=== PATIENT | female | born 1985 | race Caucasian/White ===

== ENCOUNTER → 2022-08-22 | Outpatient (CLI) | payer BC, MEDICAID ==
--- NOTE | 2022-08-22 16:20 | Diagnostic Imaging Report ---
INDICATION: Routine care. TECHNIQUE: Multiple real-time grayscale images were obtained over the gravid uterus. COMPARISON: None FINDINGS: There is a single live fetus in a variable presentation. heart rate was recorded at 153 bpm. Placenta is anterior. No previa is detected. Amniotic fluid index is 14.2 cm. Cervical length is 5.2 cm. kidneys, bladder and stomach are unremarkable. brains unremarkable. There is a 4 chamber heart. There is a three-vessel cord with normal insertion. spine is unremarkable. Biometrical measurements are as follows: Biparietal 4.60 cm, age 20 weeks 0 days. Head circumference 17.74 cm, age 20 weeks 2 days. Abdominal circumference 14.70 cm, age 20 weeks 0 days. Femur length 3.19 cm, age 20 weeks 0 days. Sonographic estimate age: 20 weeks 1 days. Sonographic estimated date of delivery: 01/06/23. Estimated Weight: 325 gm (+/- 47 gm). LMP percentile: 23%. heart rate: 153 beats per minute. number: 1 of 1. IMPRESSION: Single live IUP 20 weeks 1 day gestational age. Estimated date of confinement sonographically is 01/06/2023. Dictated by: Dictated on workstation # [id number]
== END ==
LOC: RAD 09:41
PROVIDERS: ATTEND Nurse Practitioner Women's Health
DX: Z34.92 Encounter for supervision of normal pregnancy, unspecified, second trimester (principal); Z3A.20 20 weeks gestation of pregnancy
CPT/HCPCS: 76805

== ENCOUNTER 2022-12-03 17:46 | Outpatient (CLI) | payer BC, MEDICAID ==
[~2022-12-03] VITALS: Ht 162.6 cm; Wt 94.0 kg
[2022-12-03 18:00] VITALS: BP 120/68
[2022-12-03] MEDS ORDERED: PREN1TAB79 PO (18:24)
[2022-12-03 18:41] VITALS: BP 120/68
[2022-12-03 18:51] LABS: BACTERIA,URINE NEGATIVE /HPF; BILIRUBIN,URINE NEGATIVE (NEGATIVE); CLARITY,URINE CLEAR; COLOR,URINE YELLOW; GLUCOSE, URINE (UA) NEGATIVE (NEGATIVE); KETONES,URINE NEGATIVE (NEGATIVE); LEUKOCYTE ESTERASE ,URINE NEGATIVE (NEGATIVE); NITRITE,URINE NEGATIVE (NEGATIVE); PH,URINE 6.5 (5-9); PROTEIN,URINE NEGATIVE (NEGATIVE)
[2022-12-03] MEDS ORDERED: TERBUTALINE INJ 1 MG/ML (BRETHINE) AMP ONE (18:58)
[2022-12-03] MEDS ORDERED: TERBUTALINE INJ 1 MG/ML (BRETHINE) AMP SC ONE (19:00)
[2022-12-03] MEDS ORDERED: TERBUTALINE INJ 1 MG/ML (BRETHINE) AMP SC PRN (19:20)
[2022-12-03 20:21] VITALS: BP 107/60
--- NOTE | 2022-12-04 06:38 | OB Triage Report ---
Standard Progress Note Progress Notes/Assess & Plan Date Seen by a Provider: Dec 03, 2022 Time Seen by a Provider: 18:00 Expected Date of Delivery: Jan 06, 2023 Gestational Age in Weeks: 35 Gestational Age in Days: 1 LMP/SOTERO Comment: As above Progress/Assessment & Plan Chief Complaint: Contractions HPI: Patient is 35 1/7 weeks prior who received round of steroids for lung maturity 1 week ago presents with contractions, mild, q4-6 minutes initially with cervix that is 1 cm and long. Patient was given SQ terbutaline x 1 which essentially stopped contractions, irritability only for next hour. Patient did have HR increase briefly to 160 then back down to baseline, therefore no more doses of terbutaline given and patient instructed to notify other providers of her tachycardia with this medication. UA negative, Category I FHR tracing with moderate variability, +accels, no decels. A/P: 35 1/7 weeks contractions, not in labor Home with labor precautions Follow up with OB provider this week, sooner prn. Final Diagnosis Third Trimester , 35 weeks Contractions Not in Labor YANCY MENDOZA DO Dec 04, 2022 06:38
== END 2022-12-03 20:22 | disposition home or self-care (01) ==
LOC: WSo 17:46 → LDRP 17:47 → WSo 20:22
PROVIDERS: ATTEND Obstetrics & Gynecology
DX: O47.03 False labor before 37 completed weeks of gestation, third trimester (principal); Z3A.35 35 weeks gestation of pregnancy
CPT/HCPCS: 81000; 96372; G0463; 99213

== ENCOUNTER 2022-12-18 12:20 | Inpatient (IN) | payer BC, MEDICAID ==
[2022-12-18] VITALS (14 sets, daily range): BP systolic 83–120; BP diastolic 54–91
[~2022-12-18] VITALS: Ht 162.6 cm; Wt 95.7 kg
[~2022-12-18 12:20] MED LIST: PREN1TAB79 PO
[2022-12-18] MEDS ORDERED: FAMOTIDINE INJ 20MG/2ML VIAL IV ONE (13:00)
[2022-12-18] MEDS ORDERED: METOCLOPRAMIDE INJ 10 MG/2 ML IV ONE (13:00)
[2022-12-18] MEDS ORDERED: CITRIC ACID/SODIUM CITRATE ORAL SOLN 30 ML PO ONE (13:00)
[2022-12-18] MEDS: LACTATED RINGERS 1,000 ML 1,000 ML IV PRN ×2 (13:27→13:53)
[2022-12-18 13:29] LABS: BASOPHILS % (AUTO) 0 % (0-10); EOSINOPHILS # (AUTO) 0.1 10^3/uL (0.0-0.3); EOSINOPHILS % (AUTO) 1 % (0-10); HEMATOCRIT 38 % (35-52); HEMOGLOBIN 12.9 g/dL (11.5-16.0); LYMPHOCYTES # (AUTO) 1.9 10^3/uL (1.0-4.0); LYMPHOCYTES % (AUTO) 16 % (12-44); MEAN CORPUSCULAR HEMOGLOBIN 32 pg (25-34); MEAN CORPUSCULAR HGB CONC 34 g/dL (32-36); MEAN CORPUSCULAR VOLUME 93 fL (80-99); MEAN PLATELET VOLUME 11.4 fL (9.0-12.2); MONOCYTES % (AUTO) 9 % (0-12); NEUTROPHILS # (AUTO) 8.9 10^3/uL (1.8-7.8); NEUTROPHILS % (AUTO) 74 % (42-75); PLATELET COUNT 168 10^3/uL (130-400); WHITE BLOOD COUNT 11.9 10^3/uL (4.3-11.0)
[2022-12-18] MEDS ORDERED: fentaNYL INJECTION 100 MCG/2 ML VIAL ONE (14:24)
--- NOTE | 2022-12-18 14:59 | History & Physical-OB ---
OB - Chief Complaint & HPI Date/Time Date of Admission: Date of Admission: Dec 18, 2022 at 12:20 Date seen by a Provider: Dec 18, 2022 Time Seen by a Provider: 14:30 Chief Complaint/History OB-Reason for Admission/Chief: Section Hx : 5 Hx Para: 4 Expected Date of Delivery: Jan 05, 2023 Gestational Age in Weeks: 37 Gestational Age in Days: 3 Indication for : desires repeat Other reason for admission: Patient rayo regularly w/ pelvic pressure and back pain, previous x 4 Admission Nurse Assessment Rev: Yes History of Labs B pos Antibody neg RI RPR NR HBsAg NR HIV NR GC neg GBS neg Allergies and Home Medications Allergies Coded Allergies: No Known Drug Allergies (Unverified , 12/03/22) Patient Home Medication List Home Medication List Reviewed: Yes Vit W-Ca,Fe,FA(<1 mg) ( Vitamins) 27 Mg Iron-800 Mcg Tablet, 1 EACH PO DAILY, (Reported) Entered as Reported by: SHERRY ALCALA on 12/03/221823 OB - History Hx of Present Care: Yes Ultrasounds: Normal mid trimester US Obstetrical Complications: None Medical Complications: None Other Concerns: had contractions and received betamethasone at 32 weeks Patient Past Medical History nc Social History/Family History 2nd Hand Smoke Exposure: No Immunizations Influenza Vaccine Up-to-Date: Yes; Up-to-Date Hepatitis A: No Hepatitis B: No OB - Admission Exam Physical Exam Vitals: Vital Signs 12/18/22 13:15 Pulse 95 B/P (MAP) 118/57 (77) O2 Delivery Room Air HEENT: NCAT Heart: Rhythm Normal Lungs: Clear Abdomen: Gravid Extremities: Normal Reflexes: Normal Heart Rate: 130's Accelerations: Accelerations Present Decelerations: No Decelerations Short Term Variability: Present Matting Press Tender Variability: Average (6-25) Contractions on Admission: < 5 Minutes Apart Intensity: Firm Labs Laboratory Tests Test 12/18/22 13:15 Range/Units White Blood Count 11.9 H 4.3-11.0 10^3/uL Red Blood Count 4.09 3.80-5.11 10^6/uL Hemoglobin 12.9 11.5-16.0 g/dL Hematocrit 38 35-52 % Mean Corpuscular Volume 93 80-99 fL Mean Corpuscular Hemoglobin 32 25-34 pg Mean Corpuscular Hemoglobin Concent 34 32-36 g/dL Red Cell Distribution Width 12.6 10.0-14.5 % Platelet Count 168 130-400 10^3/uL Mean Platelet Volume 11.4 9.0-12.2 fL Immature Granulocyte % (Auto) 1 % Neutrophils (%) (Auto) 74 42-75 % Lymphocytes (%) (Auto) 16 12-44 % Monocytes (%) (Auto) 9 0-12 % Eosinophils (%) (Auto) 1 0-10 % Basophils (%) (Auto) 0 0-10 % Neutrophils # (Auto) 8.9 H 1.8-7.8 10^3/uL Lymphocytes # (Auto) 1.9 1.0-4.0 10^3/uL Monocytes # (Auto) 1.0 0.0-1.0 10^3/uL Eosinophils # (Auto) 0.1 0.0-0.3 10^3/uL Basophils # (Auto) 0.0 0.0-0.1 10^3/uL Immature Granulocyte # (Auto) 0.1 0.0-0.1 10^3/uL Syphilis Total Antibody Negative Negative OB - Assessment/Plan/Diagnosis Assessment Assessment: section Admission Dx 37 yo @ 37 weeks Previous x 4 Active labor GBS neg Admission Status: Inpatient Order (span 2 midnights) Reason for Inpatient Admission: Repeat Plan Plan: Section DENISSE HINDS DO Dec 18, 2022 14:59
[2022-12-18] MEDS ORDERED: Tetanus/Diphtheria/Pertussis (Acell) ADULT Vaccine 0.5 ML IM SCH (15:00)
[2022-12-18] MEDS ORDERED: NALOXONE 0.4 MG/ML 1 ML VIAL IV PRN (15:00)
[2022-12-18] MEDS ORDERED: BISACODYL 10 MG SUPPOSITORY PR PRN (15:00)
[2022-12-18] MEDS ORDERED: MEASLES, MUMPS, RUBELLA VACCINE (MMR) SC SCH (15:00)
[2022-12-18] MEDS ORDERED: ONDANSETRON INJECTION 4 MG/2 ML (SDV) IVP PRN (15:00)
[2022-12-18] MEDS ORDERED: ceFAZolin INJECTION 2,000 MG in NS (IVPB) 50 ML 50 ML IV ONE (15:00)
--- NOTE | 2022-12-18 15:03 | Discharge Inst-Women's Service ---
Discharge Inst-Women's Serv Depart Medication/Instructions New, Converted or Re-Newed RX: Transmitted to Pharmacy Final Diagnosis POD 2 RLTCS Problems Reviewed?: Yes Consults/Follow Up Additional Follow Up: Yes Orders/Referrals Dr. Smith in 7-10 days and in 6 weeks Activity Activity: Activity as Tolerated Driving Instructions: No Driving for 1 Week NO SMOKING: NO SMOKING Nothing Inside Vagina: No Douching, No [place], No Tampons Diet Discharge Diet: No Restrictions Symptoms to Report to : Bleeding Excessive, Pain Increased, Fever Over 101 Degrees F, Vaginal Bleeding Increase, Questions/Concerns For Any Problems or Questions: Contact Your Physician Skin/Wound Care Infection Signs and Symptoms: Increased Redness, Foul Odor of Wound, Increased Drainage, Skin Itchy or Has a Rash, Increased Swelling, Temperature Above 101 F Operative Area Clean and Dry: Keep Incision Clean/Dry Stitches/Stonewall/Dermabond: Dermabond, Care of Stitches Bathing Instructions: DENISSE Prasad DO Dec 18, 2022 15:03
[2022-12-18] MEDS ORDERED: IBUP-1773 PO (15:04)
[2022-12-18] MEDS ORDERED: DOCU100C37 PO (15:04)
[2022-12-18] MEDS ORDERED: ACHD5005 PO (15:04)
[2022-12-18] MEDS: OXYTOCIN DRIP PRE-MIX 500 ML IV SCH ×2 (15:34→16:00)
[2022-12-18] MEDS ORDERED: KETOROLAC INJ 30 MG/ML VIAL ONE (15:45)
[2022-12-18] MEDS ORDERED: OXYTOCIN DRIP PRE-MIX 500 ML IV ONE (15:45)
[2022-12-18] MEDS ORDERED: PHENYLEPHRINE 100 MCG/ML 10 ML (ANESTHESIA) SYR ONE (15:45)
[2022-12-18] MEDS ORDERED: BUPIVACAINE 0.5% 30 ML VIAL ONE (15:49)
[2022-12-18] MEDS: KETOROLAC INJ 30 MG/ML VIAL IV SCH ×2 (15:50→21:43)
[2022-12-18] MEDS: HYDROcodone/ACETAMINOPHEN 5 MG/325 MG TABLET PO PRN (20:07)
[2022-12-18] MEDS: DOCUSATE SODIUM 100 MG CAPSULE PO SCH (20:08)
[2022-12-18] MEDS ORDERED: CATHETER FLUSH 10 ML SYR IV SCH (22:00)
--- NOTE | 2022-12-19 00:35 | OPERATIVE REPORT ---
PREOPERATIVE DIAGNOSES: 1. A 37-year-old at 37 weeks and 3 days gestation. 2. Previous section x4. POSTOPERATIVE DIAGNOSES: 1. A 37-year-old at 37 weeks and 3 days gestation. 2. Previous section x4. PROCEDURE: Repeat low transverse section. SURGEON: Jostin Hinds DO ANESTHESIA: Spinal. ESTIMATED BLOOD LOSS: 500 mL URINE OUTPUT: 100 mL clear at the end of the procedure. FLUIDS: 1500 mL lactated Ringer's solution. FINDINGS: A live female infant, weighing 6 pounds 14 ounces, Apgars of 8 and 8. Grossly normal appearing uterus, bilateral fallopian tubes and ovaries. SPECIMEN SENT: None. INDICATIONS FOR PROCEDURE: This 37-year-old female patient who sought care in my office, her care was uncomplicated with exception for planned repeat due to her 4 prior cesareans. Today in the office, she was found to be rayo every 2 minutes due to suspected active labor and 37 weeks, I send patient to the hospital for urgent delivery. Risks of repeat was reviewed with the patient in detail and after all of her questions were answered, she was agreeable to proceed. Consent was obtained. The patient was taken to the operating room. OPERATIVE REPORT IN DETAIL: Once in the operating room, where spinal analgesia was found to be adequate, was placed in supine position with leftward tilt, prepped and draped in normal sterile fashion. A timeout was performed. Anesthesia was tested. I then make a Pfannenstiel skin incision through a preexisting scar using knife and carried underlying fascia using Bovie cautery. The fascial incision extended laterally using Bovie cautery. Superior aspect of the fascial incision was then grasped with Gladys clamps, tented upward, and dissected off the underlying rectus muscles. The inferior aspect of the fascial incision was then grasped with Gladys clamps, tented up and dissected off the underlying rectus muscles. Rectus muscles were dissected down the midline using sharp dissection, which exposed the peritoneum, which I entered bluntly and extended using blunt traction. Stewart ring retractor was placed in the peritoneal incision, which offers excellent lateral sidewall retraction. I identified lower uterine segment was found to be thinned out and make a low transverse incision to the vesicouterine peritoneum and bluntly dissected off the lower uterine segment, creating a bladder flap. I then proceeded with my myotomy until membranes were visualized, at which point I extended uterine incision laterally and superiorly using bandage scissors. Amniotomy was then performed using Allis clamp. Clear fluid was noted. The was found in vertex presentation. With gentle fundal pressure, the 's head was elevated up the incision where it was delivered through the incision. The nares and oropharynx were bulb suctioned. Anterior and posterior shoulders were delivered. Infant was brought to the operative field where cords were doubly clamped and cut and was handed off to waiting nurses in attendance. Cord blood was collected. Three-vessel cord with intact placenta delivered spontaneously thereafter. IV Pitocin was initiated to facilitate uterine contraction. Uterine fundus confirmed by manual massage. The uterus was exteriorized and cleared of all endometrial clots and debris. I then proceeded with closing the uterine incision using 0 Vicryl suture in a running locked fashion. Second layer of imbricating 0 Monocryl was placed. Excellent hemostasis was noted after doing this. I then placed the uterus back in pelvis and copiously irrigated the pelvis using normal saline. Once again, there was no active bleeding noted from any of my dissection planes, I placed Interceed antiadhesive over my low transverse incision. I then removed the Stewart ring retractor and then proceeded to close the peritoneum using 3-0 Vicryl suture in a running fashion. Rectus muscles were reapproximated using 3-0 Vicryl suture in interrupted fashion. The fascia was reapproximated using 0 Vicryl suture in a running fashion. Subcutaneous tissue was reapproximated with 3-0 plain interrupted subcutaneous stitch and the skin reapproximated using 4-0 Monocryl running subcuticular. Dermabond was applied to incision, sterile dressing with adhesive white tape. The patient tolerated the procedure well and was taken to recovery in stable condition. Lap and sponge counts were correct at the end of the procedure. Instrument counts correct as well. Two grams of Ancef were given preoperatively for infection prophylaxis. Job ID: [id number] DocumentID: [id number] Dictated Date: 12/18/2022 16:07:37 Contact Lens Cutter Date: 12/19/2022 00:34:00 Dictated By: JOSTIN HINDS DO
[2022-12-19] MEDS: HYDROcodone/ACETAMINOPHEN 5 MG/325 MG TABLET PO PRN ×2 (02:12→10:13)
[2022-12-19 02:51] VITALS: BP 112/61
[2022-12-19] MEDS: KETOROLAC INJ 30 MG/ML VIAL IV SCH ×2 (02:55→08:20)
[2022-12-19 05:39] LABS: BASOPHILS % (AUTO) 0 % (0-10); EOSINOPHILS # (AUTO) 0.1 10^3/uL (0.0-0.3); EOSINOPHILS % (AUTO) 1 % (0-10); HEMATOCRIT 35 % (35-52); HEMOGLOBIN 11.9 g/dL (11.5-16.0); LYMPHOCYTES # (AUTO) 1.7 10^3/uL (1.0-4.0); LYMPHOCYTES % (AUTO) 16 % (12-44); MEAN CORPUSCULAR HEMOGLOBIN 32 pg (25-34); MEAN CORPUSCULAR HGB CONC 34 g/dL (32-36); MEAN CORPUSCULAR VOLUME 94 fL (80-99); MEAN PLATELET VOLUME 11.4 fL (9.0-12.2); MONOCYTES # (AUTO) 1.2 10^3/uL (0.0-1.0); MONOCYTES % (AUTO) 12 % (0-12); NEUTROPHILS # (AUTO) 7.3 10^3/uL (1.8-7.8); NEUTROPHILS % (AUTO) 70 % (42-75); PLATELET COUNT 151 10^3/uL (130-400); WHITE BLOOD COUNT 10.5 10^3/uL (4.3-11.0)
--- NOTE | 2022-12-19 07:21 | Postpartum Progress Note ---
Note Note Day # 1 Subjective: Patient is without complaints. Ambulating, voiding. Tolerating a regular diet without nausea or vomiting. Normal lochia. Pain is well controlled with oral pain medications. [ Objective: Physical Exam: General - Alert and oriented, no apparent distress Abdomen - Soft, appropriately tender to palpation, non-distended, fundus firm at umbilicus Extremities - no edema, negative Manasa's bilaterally Incision- c/d/i Assessment: POD 1 RLTCS Acute blood loss anemia Plan: Routine care. Encourage breast feeding. Encourage ambulation. Ferrous sulfate supplementation. Plan for discharge today due to infant transfer, precautions and follow up reviewed. Vitals - Labs Vital Signs - I&O Vital Signs Date Time Temp Pulse Resp B/P (MAP) Pulse Ox O2 Delivery O2 Flow Rate FiO2 12/19/22 02:51 36.3 71 18 112/61 (78) 98 Room Air 12/18/22 23:40 36.2 88 18 109/59 (76) 97 Room Air 12/18/22 21:44 Room Air 12/18/22 20:10 36.1 86 18 112/60 (77) 97 Room Air 12/18/22 18:00 36.2 82 18 105/61 (76) 99 Room Air 12/18/22 17:30 36.2 87 18 102/54 (70) 100 Room Air 12/18/22 17:00 12/18/22 16:55 36.2 18 106/57 (73) 100 Room Air 12/18/22 16:55 Room Air 12/18/22 16:40 36.2 20 83/63 (70) 100 Room Air 12/18/22 16:40 Room Air 12/18/22 16:31 36.2 84 18 94/56 (69) 98 Room Air 12/18/22 16:25 Room Air 12/18/22 16:25 36.2 18 110/55 (73) 100 Room Air 12/18/22 16:10 Room Air 12/18/22 16:10 36.2 18 94/56 (69) 98 Room Air 12/18/22 13:15 95 118/57 (77) Room Air 12/18/22 13:00 36.8 96 18 120/63 (82) 99 Room Air 12/18/22 13:00 36.8 96 18 99 Room Air 12/18/22 12:45 90 112/65 (81) 97 Room Air 12/18/22 12:30 93 120/91 (101) 99 Room Air I & O 12/19/22 07:00 Intake Total 2850 ml Output Total 3275 ml Balance -425 ml Labs Laboratory Tests 12/18/22 13:15: White Blood Count 11.9H, Red Blood Count 4.09, Hemoglobin 12.9, Hematocrit 38, Mean Corpuscular Volume 93, Mean Corpuscular Hemoglobin 32, Mean Corpuscular Hemoglobin Concent 34, Red Cell Distribution Width 12.6, Platelet Count 168, Mean Platelet Volume 11.4, Immature Granulocyte % (Auto) 1, Neutrophils (%) (Auto) 74, Lymphocytes (%) (Auto) 16, Monocytes (%) (Auto) 9, Eosinophils (%) (Auto) 1, Basophils (%) (Auto) 0, Neutrophils # (Auto) 8.9H, Lymphocytes # (Auto) 1.9, Monocytes # (Auto) 1.0, Eosinophils # (Auto) 0.1, Basophils # (Auto) 0.0, Immature Granulocyte # (Auto) 0.1, Syphilis Total Antibody Negative 12/19/22 05:28: White Blood Count 10.5, Red Blood Count 3.75L, Hemoglobin 11.9, Hematocrit 35, Mean Corpuscular Volume 94, Mean Corpuscular Hemoglobin 32, Mean Corpuscular Hemoglobin Concent 34, Red Cell Distribution Width 12.6, Platelet Count 151, Mean Platelet Volume 11.4, Immature Granulocyte % (Auto) 1, Neutrophils (%) (Auto) 70, Lymphocytes (%) (Auto) 16, Monocytes (%) (Auto) 12, Eosinophils (%) (Auto) 1, Basophils (%) (Auto) 0, Neutrophils # (Auto) 7.3, Lymphocytes # (Auto) 1.7, Monocytes # (Auto) 1.2H, Eosinophils # (Auto) 0.1, Basophils # (Auto) 0.0, Immature Granulocyte # (Auto) 0.1 DENISSE HINDS DO Dec 19, 2022 07:21
[2022-12-19 08:15] VITALS: BP 125/67
[2022-12-19] MEDS: DOCUSATE SODIUM 100 MG CAPSULE PO SCH (08:19)
[2022-12-19 11:00] VITALS: BP 125/67
--- NOTE | 2022-12-19 11:05 | Anesthesia-Regional Post-Op ---
Regional Patient Condition Mental Status: Alert, Oriented x3 Circulation: Same as Pre-Op Headache: Absent Sensation: Full Recovery Motor Block: Absent Post Op Complications Complications None Follow Up Care/Instructions Patient Instructions None needed. Anesthesia/Patient Condition Patient is doing well, no complaints, stable vital signs, no apparent adverse anesthesia problems. No complications reported per nursing. MIKO COKER CRNA Dec 19, 2022 11:05
[2022-12-19] MEDS ORDERED: IBUPROFEN 600 MG TABLET PO SCH (15:30)
== END 2022-12-19 11:00 | disposition home or self-care (01) | DRG 787 ==
LOC: LDRP 12:20
PROVIDERS: ADMIT Obstetrics & Gynecology; ATTEND Obstetrics & Gynecology
PROC: 10D00Z1 Extraction of Products of Conception, Low, Open Approach (ICD-10-PCS; principal; 2022-12-18 15:05)
DX: O34.211 Maternal care for low transverse scar from previous cesarean delivery (principal); D62 Acute posthemorrhagic anemia; Z3A.37 37 weeks gestation of pregnancy; Z37.0 Single live birth; O90.81 Anemia of the puerperium
CPT/HCPCS: 36415; 85025; 86780; 86850; 86900; 86901; 94664